=== PATIENT | female | born 1935 | race Two or more races ===

== ENCOUNTER 2024-09-27 13:50 | Inpatient (IN) | payer MEDICARE, OTHER ==
[~2024-09-27] VITALS: Ht 160 cm; Wt 84.0 kg
[2024-09-27] MEDS: IPRATROPIUM BROMIDE 0.5 MG/2.5 ML NEB SOLUTION NEB ONE (14:58)
[2024-09-27] MEDS: ALBUTEROL SULFATE 2.5 MG/0.5 ML NEB SOLUTION NEB ONE (14:58)
[2024-09-27 14:59] VITALS: PULSE 41; RESP 20; O2SAT 100
[2024-09-27 15:04] LABS: COVID AG,FIA SOURCE NASAL SWAB
[2024-09-27 15:05] VITALS: PULSE 43; RESP 20; O2SAT 100
[2024-09-27 15:10] VITALS: PULSE 41; RESP 18; O2SAT 100
[2024-09-27 15:27] LABS: BASOPHILS % (AUTO) 0.4 % (0.0-2.0); HEMATOCRIT 34.9 % (36-46); HEMOGLOBIN 11.4 g/dL (12.0-16.0); LYMPHOCYTES # (AUTO) 1.8 K/uL (1.0-4.8); LYMPHOCYTES % (AUTO) 16.3 % (22.0-44.0); MEAN CORPUSCULAR HEMOGLOBIN 29.4 pg (26.0-34.0); MEAN CORPUSCULAR HGB CONC 32.7 G/dL (31.0-37.0); MEAN CORPUSCULAR VOLUME 90 fL (80-100); MONOCYTES # (AUTO) 1.2 K/uL (0.1-1.0); MONOCYTES % (AUTO) 10.8 % (2.0-9.0); NEUTROPHILS # (AUTO) 7.8 K/uL (1.8-7.7); NEUTROPHILS % (AUTO) 71.5 % (40.0-70.0); PLATELET COUNT (AUTO) 408 K/uL (150-450); RED BLOOD CELL COUNT(AUTO) 3.88 MIL/uL (4.00-5.20); WHITE BLOOD COUNT (AUTO) 10.9 K/uL (4.5-11.0)
[2024-09-27 15:37] LABS: ANION GAP 5 mmol/L (8-16); CALCIUM, TOTAL 9.7 mg/dL (8.8-10.5); CARBON DIOXIDE 30 mmol/L (22-29); CHLORIDE 98 mmol/L (98-107); GLOMERULAR FILTR. RATE CALC > 60 mL/min (>60); GLUCOSE,RANDOM 106 mg/dL (70-110); POTASSIUM 3.7 mmol/L (3.5-5.1); SODIUM SERUM 133 mmol/L (136-145); UREA NITROGEN, BLOOD 21 mg/dL (7-18)
[2024-09-27 15:44] LABS: TROPONIN I-HIGH SENSITIVITY 12 ng/L (<51)
[2024-09-27 15:47] LABS: ALANINE AMINOTRANSFERASE 40 U/L (12-78); ALBUMIN 2.8 g/dL (3.4-5.0); ALKALINE PHOSPHATASE 86 U/L (46-116); ASPARTATE AMINOTRANSFERASE 26 U/L (15-37); BILIRUBIN,TOTAL 0.6 mg/dL (0.1-1.0); CREATINE KINASE, TOTAL ONLY 22 U/L (26-192); PHOSPHORUS 3.4 mg/dL (2.5-4.9); TOTAL PROTEIN, SERUM 7.1 g/dL (6.4-8.2)
[2024-09-27 15:51] LABS: B-TYPE NATRIURETIC PEPTIDE 176 pg/mL (0-100)
[2024-09-27 15:56] LABS: INFLUENZA TYPE A NEGATIVE FOR TYPE A (NEGATIVE); INFLUENZA TYPE B NEGATIVE FOR TYPE B (NEGATIVE); SARS-COV2 (COVID) ANTIGEN,FIA Negative (Negative)
[2024-09-27] MEDS ORDERED: ACETAMINOPHEN 325 MG TABLET PO PRN (19:00)
[2024-09-27] MEDS ORDERED: BISACODYL 10 MG RECTAL RECTAL SUPPOSITORY PR PRN (19:00)
[2024-09-27] MEDS ORDERED: IPRATROPIUM BROMIDE 0.5 MG/2.5 ML NEB SOLUTION NEB PRN (19:00)
[2024-09-27] MEDS ORDERED: ONDANSETRON HCL 4 MG/2 ML VIAL IVP PRN (19:00)
[2024-09-27] MEDS ORDERED: MAGNESIUM HYDROXIDE SUSPENSION 30 ML UDCUP PO PRN (19:00)
[2024-09-27] MEDS ORDERED: MORPHINE SULFATE 2 MG/ML SYRINGE IVP PRN (19:00)
[2024-09-27] MEDS ORDERED: ALBUTEROL SULFATE 2.5 MG/0.5 ML NEB SOLUTION NEB PRN (19:00)
[2024-09-27 19:14] VITALS: PULSE 40; RESP 20; O2SAT 95
[2024-09-27] MEDS: IPRATROPIUM BROMIDE 0.5 MG/2.5 ML NEB SOLUTION NEB SCH (19:14)
[2024-09-27] MEDS: ALBUTEROL SULFATE 2.5 MG/0.5 ML NEB SOLUTION NEB SCH (19:15)
[2024-09-27 19:29] VITALS: PULSE 45; RESP 20; O2SAT 100
[2024-09-27] MEDS: CefTRIAXone 1 GM/DEXTROSE 50 ML IV SCH (20:15)
[2024-09-27] MEDS: GuaiFENesin SR 600 MG ER TABLET PO SCH (20:16)
[2024-09-27] MEDS: AZITHROMYCIN 500 MG/NS 250 ML IV SCH (20:16)
[2024-09-27] MEDS: DOCUSATE SODIUM 100 MG CAPSULE PO SCH (20:17)
[2024-09-27] MEDS: BENZONATATE 100 MG CAPSULE PO SCH (20:17)
[2024-09-27] MEDS: HydrALAZINE HCL 20 MG/ML VIAL IVP ONE (22:36)
[2024-09-28] VITALS (10 sets, daily range): BP systolic 143–147; BP diastolic 51–74; PULSE 35–46; RESP 18–24; TEMP 97.8–98.6; O2SAT 95–100
[2024-09-28] MEDS: HEPARIN SODIUM,PORCINE 5,000 UNITS/ML VIAL SQ SCH
[2024-09-28] MEDS: MethylPREDNISolone SOD SUCC 125 MG/2 ML VIAL IVP SCH (00:17)
[2024-09-28] MEDS: PANTOPRAZOLE SODIUM 40 MG DR TABLET PO SCH (08:31)
[2024-09-28] MEDS: FUROSEMIDE 20 MG/2 ML VIAL IVP SCH (14:06)
[2024-09-28] MEDS: ZOLPIDEM TARTRATE 5 MG TABLET PO PRN (23:35)
[2024-09-29] VITALS (10 sets, daily range): BP systolic 134–167; BP diastolic 43–72; PULSE 31–61; RESP 16–20; TEMP 97.4–98.8; O2SAT 92–100
[2024-09-29] MEDS: AmLODIPine BESYLATE 5 MG TABLET PO SCH (13:45)
[2024-09-29] MEDS ORDERED: ESCI-8 PO (14:50)
[2024-09-29] MEDS ORDERED: APIX5TAB PO (14:51)
[2024-09-29] MEDS ORDERED: BUSP10TA23 PO (14:51)
[2024-09-29] MEDS ORDERED: ATOR40TA28 PO (14:52)
[2024-09-29] MEDS ORDERED: ASCO500 PO (14:55)
[2024-09-29] MEDS ORDERED: GABA-1181 PO (14:57)
[2024-09-29] MEDS ORDERED: CHOL25TA4 PO (14:59)
[2024-09-29] MEDS ORDERED: MULT-264 PO (15:00)
[2024-09-29] MEDS ORDERED: OMEG100014 PO (15:00)
[2024-09-29] MEDS ORDERED: MELA5TAB40 PO (15:01)
[2024-09-29] MEDS: GuaiFENesin/D-METHORPHAN/PHENYLEPH 5 ML LIQUID ORAL.SYG PO PRN (15:18)
[2024-09-29] MEDS ORDERED: SODIUM CHLORIDE 0.9% 500 ML IV ONE (20:52)
[2024-09-29] MEDS: BUDESONIDE 0.5 MG/2 ML NEB SOLUTION NEB SCH (21:00)
[2024-09-29] MEDS: HYDROCODONE/ACETAMINOPHEN 5-325 MG TABLET PO PRN (22:02)
[2024-09-30] VITALS (9 sets, daily range): BP systolic 121–153; BP diastolic 43–57; PULSE 37–60; RESP 18–20; TEMP 97.5–98.3; O2SAT 94–99
[2024-09-30 08:07] LABS: ANION GAP 7 mmol/L (8-16); CALCIUM, TOTAL 9.9 mg/dL (8.8-10.5); CARBON DIOXIDE 28 mmol/L (22-29); CHLORIDE 102 mmol/L (98-107); CREATININE 0.56 mg/dL (0.60-1.30); GLOMERULAR FILTR. RATE CALC > 60 mL/min (>60); GLUCOSE,RANDOM 139 mg/dL (70-110); POTASSIUM 3.9 mmol/L (3.5-5.1); SODIUM SERUM 137 mmol/L (136-145); UREA NITROGEN, BLOOD 28 mg/dL (7-18)
[2024-09-30 08:12] LABS: BASOPHILS % (AUTO) 0.2 % (0.0-2.0); EOSINOPHILS % (AUTO) 0 % (1.0-6.0); HEMATOCRIT 36.6 % (36-46); HEMOGLOBIN 11.8 g/dL (12.0-16.0); LYMPHOCYTES # (AUTO) 1.3 K/uL (1.0-4.8); MEAN CORPUSCULAR HGB CONC 32.2 G/dL (31.0-37.0); MEAN CORPUSCULAR VOLUME 90 fL (80-100); MONOCYTES # (AUTO) 0.4 K/uL (0.1-1.0); MONOCYTES % (AUTO) 3.3 % (2.0-9.0); NEUTROPHILS # (AUTO) 9.8 K/uL (1.8-7.7); NEUTROPHILS % (AUTO) 85.5 % (40.0-70.0); PLATELET COUNT (AUTO) 398 K/uL (150-450); RED BLOOD CELL COUNT(AUTO) 4.08 MIL/uL (4.00-5.20); RED CELL DISTRIBUTION WIDTH 14.1 % (11.5-14.5); WHITE BLOOD COUNT (AUTO) 11.5 K/uL (4.5-11.0)
== END 2024-09-30 16:15 | DRG 193 ==
LOC: EMS 13:56 → EDH 18:49 → 5N 09-28 10:00
PROVIDERS: ADMIT Internal Medicine; ATTEND Internal Medicine
DX: J18.9 Pneumonia, unspecified organism (principal); I50.31 Acute diastolic (congestive) heart failure; J96.01 Acute respiratory failure with hypoxia; I48.20 Chronic atrial fibrillation, unspecified; I11.0 Hypertensive heart disease with heart failure; F32.A Depression, unspecified; Z66 Do not resuscitate; F03.90 Unspecified dementia, unspecified severity, without behavioral disturbance, psychotic disturbance, mood disturbance, and anxiety; Z20.822 Contact with and (suspected) exposure to COVID-19; E78.5 Hyperlipidemia, unspecified; E78.00 Pure hypercholesterolemia, unspecified; F41.9 Anxiety disorder, unspecified; K21.9 Gastro-esophageal reflux disease without esophagitis; R00.1 Bradycardia, unspecified; Z79.899 Other long term (current) drug therapy
CPT/HCPCS: 71045; 80048; 80076; 82550; 83735; 83880; 84100; 84484; 85025; 85730; 87040; 87081; 87804; 93005; 93306; 94640; 99285; G0378; J0360; J0456; J0696; J1644; J1940; J2919; J7040; 36415-L1; 36415-TC; J7613